=== PATIENT | male | born 1985 | race Caucasian/White ===

== ENCOUNTER 2023-10-15 09:42 | Day surgery (SDC) | payer OTHER, SELFPAY ==
[2023-10-15] VITALS (8 sets, daily range): BP systolic 123–137; BP diastolic 76–89; PULSE 61–72; RESP 16; TEMP 36.3–36.6; O2SAT 97–99; BMI 19.8
--- NOTE | 2023-10-15 10:38 | W.PM.H&PU ---
History & Physical Update History & Physical Update H&P Reviewed and patient assessed: No changes noted
--- NOTE | 2023-10-15 10:38 | PM.ORPRC ---
Procedure Note Date of procedure: 10/15/23 Rake Operator Details: PREOPERATIVE DIAGNOSIS: 1. Right carpal tunnel syndrome POSTOPERATIVE DIAGNOSIS: 1. Right carpal tunnel syndrome PROCEDURE: 1. Right open carpal tunnel release SURGEON: Freddy Guardado MD. ORTHODONTIST SMALL BUSINESS OWNER: Sanjiv Bateman. An medical laboratory assistant was critical for this case to aid in patient positioning, tissue retraction, limb manipulation/positioning, and closure. ANESTHESIA: Local anesthetic IMPLANTS: None ESTIMATED BLOOD LOSS: 1 mL TOURNIQUET: Not utilized COMPLICATIONS: None INDICATIONS: The patient is a pleasant 37-year-old male with history of bilateral hand numbness and tingling secondary to carpal tunnel syndrome. Symptoms were not improving with conservative treatment, and patient elected to proceed with surgical intervention consisting of right carpal tunnel release. Prior to surgery, the risks and benefits of the procedure were discussed with patient, all questions were answered, and informed consent was obtained. DESCRIPTION OF PROCEDURE: Patient was seen preoperatively and operative site was marked. Patient was then brought to the operating room and placed in the supine position on the OR table. Subcutaneous tissues overlying the right carpal tunnel were injected with a combination of 1% lidocaine and 0.5% bupivacaine with epinephrine. A tourniquet was placed on the patient's right arm but was not utilized during the procedure. The right upper extremity was prepped and draped in usual sterile fashion. A surgical time-out was performed confirming patient name, procedure, and location. A skin incision measuring approximately 3-4 cm was made in line with the ring finger extending from the distal wrist flexion crease to Rocha's cardinal line. Bipolar electrocautery was used to achieve hemostasis. Dissection was carried through subcutaneous tissues and palmar fascia. Transverse carpal ligament was identified and was sharply incised proximally with care taken to protect the underlying median nerve. The transverse carpal ligament was then sharply divided along its ulnar border using tenotomy scissors and a [place] blade with care taken to protect the underlying median nerve. Once the transverse carpal ligament was divided, the antebrachial fascia was released proximally. The wound was then irrigated with normal saline. The skin incision was closed with 3-0 nylon horizontal mattress sutures, and a sterile dressing was applied. Patient was then transferred to the recovery room in stable condition. POSTOPERATIVE PLAN: 1. Patient will be discharged to home day of surgery. 2. Ice and elevation as needed for pain and swelling. 3. Tylenol and/or ibuprofen as needed for pain. 4. They were given instructions for wound care and finger range of motion exercises. 5. The return to the hospital for left carpal tunnel release in 2 weeks. Right hand sutures will be removed at that time.
[2023-10-15] MEDS: BUPIVACAINE 0.5% 30 ML INJECTION (11:00)
[2023-10-15] MEDS: BACITRACIN OINTMENT BULK TUBE 1 APPLIC TOPICAL (11:33)
== END 2023-10-15 11:48 | disposition home or self-care (01) ==
LOC: OR 09:44
PROVIDERS: PCP Family Medicine; Visit Provider Orthopaedic Surgery
PROC: (CPT 64721; principal; 2023-10-15 12:00)
DX: G56.01 Carpal tunnel syndrome, right upper limb (principal)
CPT/HCPCS: 64721; J0665

== ENCOUNTER 2023-10-29 06:51 | Day surgery (SDC) | payer OTHER, MEDICAID, SELFPAY ==
[2023-10-29] VITALS (10 sets, daily range): BP systolic 136–177; BP diastolic 95–110; PULSE 72–93; RESP 15–16; TEMP 37.1–37.2; O2SAT 97–100; BMI 19.5
--- NOTE | 2023-10-29 07:13 | W.PM.H&PU ---
History & Physical Update History & Physical Update H&P Reviewed and patient assessed: No changes noted
--- NOTE | 2023-10-29 07:14 | P.ORPRC_ITS ---
Procedure Note Date of procedure: 10/29/23 Procedure: PREOPERATIVE DIAGNOSIS: 1. Left carpal tunnel syndrome POSTOPERATIVE DIAGNOSIS: 1. Left carpal tunnel syndrome PROCEDURE: 1. Left open carpal tunnel release SURGEON: Freddy Guardado MD. SILVER MINER: Sanjiv Bateman. An administrative assistant receptionist was critical for this case to aid in patient positioning, tissue retraction, limb manipulation/positioning, and closure. ANESTHESIA: Local anesthetic IMPLANTS: None ESTIMATED BLOOD LOSS: 2 mL TOURNIQUET: Not utilized COMPLICATIONS: None INDICATIONS: The patient is a pleasant 37-year-old male with history of bilateral hand numbness, tingling, and pain secondary to carpal tunnel syndrome. Symptoms were not improving with conservative treatment, and patient elected to proceed with surgical intervention consisting of left carpal tunnel release. Prior to surgery, the risks and benefits of the procedure were discussed with patient, all questions were answered, and informed consent was obtained. DESCRIPTION OF PROCEDURE: Patient was seen preoperatively and operative site was marked. Patient was then brought to the operating room and placed in the supine position on the OR table. A tourniquet was placed on the patient's left arm and left upper extremity was prepped and draped in usual sterile fashion. A surgical time-out was performed confirming patient name, procedure, and location. The subcutaneous tissues overlying the left carpal tunnel were injected with a combination of 1% lidocaine and 0.5% bupivacaine epinephrine. A skin incision measuring approximately 3-4 cm was made in line with the ring finger extending from the distal wrist flexion crease to Rocha's cardinal line. Blunt dissection was used to dissect through subcutaneous tissues and palmar fascia. Bipolar electric cautery was used to achieve hemostasis. Transverse carpal ligament was identified and was sharply incised proximally with care taken to protect the underlying median nerve. The transverse carpal ligament was then sharply divided along its ulnar border using tenotomy scissors and a [place] blade with care taken to protect the underlying median nerve. Once the transverse carpal ligament was divided, the antebrachial fascia was released proximally. The wound was then irrigated with normal saline. The skin incision was closed with 4-0 nylon horizontal mattress sutures, and a sterile dressing was applied. Patient was then transferred to the recovery room in stable condition. POSTOPERATIVE PLAN: 1. Patient will be discharged to home day of surgery. 2. Ice and elevation as needed for pain and swelling. 3. Tylenol and/or ibuprofen as needed for pain. 4. They were given instructions for wound care and finger range of motion exercises. 5. Return to the clinic for follow-up evaluation in 10-14 days for wound check and suture removal.
[2023-10-29] MEDS: BUPIVACAINE 0.25% 30 ML 5 ML INJECTION (07:31)
--- NOTE | 2023-10-29 07:42 | SUR.OPER ---
PATIENT QUESTIONS ANSWERED SATISFACTORILY PREOPERATIVELY. PATIENT BROUGHT TO OR #3 PER WHEELCHAIR. Patient positioned supine on OR #3 bed. The perioperative team supported arms bilaterally on arm boards. Final approval of positioning by surgeon.
== END 2023-10-29 08:25 | disposition home or self-care (01) ==
LOC: OR 06:52
PROVIDERS: PCP Family Medicine; Visit Provider Orthopaedic Surgery
PROC: (CPT 64721; principal; 2023-10-29 07:30)
DX: G56.02 Carpal tunnel syndrome, left upper limb (principal)
CPT/HCPCS: 64721; J0665